=== PATIENT | male | born 1955 | race African-American/Black ===

== ENCOUNTER 2022-12-26 12:03 | Emergency (ER) | payer SELFPAY ==
[~2022-12-26] VITALS: Ht 188 cm; Wt 88.0 kg
[2022-12-26 12:18] VITALS: O2SAT 98
[2022-12-26] MEDS ORDERED: BO1 TP (14:47)
[2022-12-26 15:32] VITALS: BP 148/92; PULSE 61; RESP 20; TEMP 97.5
== END 2022-12-26 15:34 | disposition home or self-care (01) ==
LOC: ER 15:16
DX: T23.222A Burn of second degree of single left finger (nail) except thumb, initial encounter (principal); T23.232A Burn of second degree of multiple left fingers (nail), not including thumb, initial encounter; I10 Essential (primary) hypertension; X11.8XXA Contact with other hot tap-water, initial encounter; Y93.89 Activity, other specified; Y92.89 Other specified places as the place of occurrence of the external cause; Y99.2 Volunteer activity
CPT/HCPCS: 16020; 99282